=== PATIENT | female | born 1970 | race Two or more races ===

== ENCOUNTER 2022-06-07 09:45 | Inpatient (IN) | payer OTHER ==
[~2022-06-07] VITALS: Ht 149.9 cm; Wt 113.4 kg
[2022-06-07] MEDS ORDERED: ROSUVAST PO (12:18)
[2022-06-07] MEDS ORDERED: VITAMIN D PO (12:18)
== END 2022-06-12 11:20 | disposition home or self-care (01) | DRG 735 ==
LOC: O/R 06-10 07:28 → OB/GYN 06-10 07:28 → SURH 06-10 09:45 → OB/GYN 06-10 14:08
PROVIDERS: ADMIT Obstetrics & Gynecology Gynecologic Oncology; ATTEND Obstetrics & Gynecology Gynecologic Oncology
PROC: 07TC0ZZ Resection of Pelvis Lymphatic, Open Approach (ICD-10-PCS; 2022-06-10)
PROC: 0UT90ZZ Resection of Uterus, Open Approach (ICD-10-PCS; 2022-06-10)
PROC: 0UT20ZZ Resection of Bilateral Ovaries, Open Approach (ICD-10-PCS; 2022-06-10)
PROC: 0UT70ZZ Resection of Bilateral Fallopian Tubes, Open Approach (ICD-10-PCS; 2022-06-10)
PROC: 07TD0ZZ Resection of Aortic Lymphatic, Open Approach (ICD-10-PCS; principal; 2022-06-10 13:15)
DX: C54.1 Malignant neoplasm of endometrium (principal); Z20.822 Contact with and (suspected) exposure to COVID-19

== ENCOUNTER 2024-01-26 12:01 | Outpatient (CLI) | payer OTHER ==
[~2024-01-26 12:01] MED LIST: ROSUVAST PO; VITAMIN D PO
== END 2024-01-26 12:12 | disposition home or self-care (01) ==
LOC: MAMO-SONO 12:01
PROVIDERS: ATTEND Obstetrics & Gynecology Gynecologic Oncology
DX: N64.59 Other signs and symptoms in breast (principal); Z12.31 Encounter for screening mammogram for malignant neoplasm of breast

== ENCOUNTER → 2024-02-09 12:47 | Outpatient (CLI) | payer OTHER ==
[2024-02-09 13:44] LABS: CREATININE SERUM 0.63 mg/dL (0.55-1.02)
== END | disposition home or self-care (01) ==
LOC: LAB 12:47
PROVIDERS: ATTEND Radiology Diagnostic Radiology
DX: R10.30 Lower abdominal pain, unspecified (principal)

== ENCOUNTER 2024-03-02 07:13 | Outpatient (CLI) | payer OTHER | END 2024-03-02 07:27 | disposition home or self-care (01) | LOC: TOM 07:13 | PROVIDERS: ATTEND Obstetrics & Gynecology Gynecologic Oncology | DX: C54.1 Malignant neoplasm of endometrium (principal) ==

== ENCOUNTER → 2024-09-26 06:24 | Outpatient (CLI) | payer OTHER ==
[2024-09-26 07:25] LABS: URINE APPEARANCE Clear; URINE BILIRRUBIN Negative (NEGATIVE); URINE BLOOD Small; URINE COLOR Yellow; URINE GLUCOSE Negative (NEGATIVE); URINE KETONE Negative (NEGATIVE); URINE LEUKOCYTE Negative; URINE NITRATE Negative; URINE PROTEIN Negative (NEGATIVE); URINE UROBILINOGEN 0.2 E.U./dl
[2024-09-26 07:29] LABS: URINE BACTERIA 254.4 uL (0.0-1933); URINE EPITHELIAL CELLS 7.9 uL (0.0-38.8); URINE RBC 40.4 uL (0.0-20.8); URINE WBC 2.9 uL (0.0-23.2)
[2024-09-26 08:03] LABS: ALBUMIN 3.6 gm/dL (3.4-5.0); BILIRUBIN TOTAL 0.39 mg/dL (0.3-1.2); CALCIUM 9.2 mg/dL (8.5-10.1); CHOL HDL RATIO 2.6 (0-5.0); CREATININE SERUM 0.63 mg/dL (0.55-1.02); GFR 98.11; GLOBULINA 3.6 G/DL (2.4-3.5); POTASSIUM 4.23 mEq/L (3.5-5.1); TOTAL PROTEIN 7.2 gm/dL (6.4-8.2)
== END | disposition home or self-care (01) ==
LOC: LAB 06:24
PROVIDERS: ATTEND Internal Medicine Endocrinology, Diabetes & Metabolism
DX: E78.2 Mixed hyperlipidemia (principal); E11.9 Type 2 diabetes mellitus without complications

== ENCOUNTER 2025-01-21 07:54 | Outpatient (CLI) | payer OTHER | END 2025-01-21 08:07 | disposition home or self-care (01) | LOC: MRI 07:54 | PROVIDERS: ATTEND Obstetrics & Gynecology Gynecologic Oncology | DX: C54.1 Malignant neoplasm of endometrium (principal) | CPT/HCPCS: 72197 ==

== ENCOUNTER 2025-02-01 13:31 | Outpatient (CLI) | payer OTHER | END 2025-02-01 13:41 | disposition home or self-care (01) | LOC: RAD 13:31 | PROVIDERS: ATTEND Orthopaedic Surgery | DX: M54.50 Low back pain, unspecified (principal); M25.552 Pain in left hip; M25.562 Pain in left knee ==

== ENCOUNTER 2025-04-01 06:49 | Outpatient (CLI) | payer OTHER ==
[2025-04-01 07:54] LABS: URINE APPEARANCE Clear; URINE BILIRRUBIN Negative (NEGATIVE); URINE BLOOD Small; URINE COLOR Dark Yellow; URINE GLUCOSE Negative (NEGATIVE); URINE KETONE Trace (NEGATIVE); URINE LEUKOCYTE Negative; URINE NITRATE Negative; URINE PROTEIN Trace (NEGATIVE)
[2025-04-01 07:57] LABS: URINE BACTERIA 188.4 uL (0.0-1933); URINE EPITHELIAL CELLS 23.2 uL (0.0-38.8); URINE RBC 51.5 uL (0.0-20.8); URINE WBC 7.1 uL (0.0-23.2)
[2025-04-01 09:25] LABS: ALBUMIN 3.5 gm/dL (3.4-5.0); BILIRUBIN TOTAL 0.47 mg/dL (0.3-1.2); CALCIUM 8.5 mg/dL (8.5-10.1); CHOL HDL RATIO 2.4 (0-5.0); CREATININE SERUM 0.7 mg/dL (0.55-1.02); GFR 86.56; GLOBULINA 3.3 G/DL (2.4-3.5); POTASSIUM 4.73 mEq/L (3.5-5.1); TOTAL PROTEIN 6.8 gm/dL (6.4-8.2)
[2025-04-01 16:29] LABS: TSH 2.97 uIU/mL (0.358-3.74)
== END 2025-04-01 06:51 | disposition home or self-care (01) ==
LOC: LAB 06:49
PROVIDERS: ATTEND Internal Medicine Endocrinology, Diabetes & Metabolism
DX: E78.2 Mixed hyperlipidemia (principal); E03.8 Other specified hypothyroidism; E11.9 Type 2 diabetes mellitus without complications

== ENCOUNTER 2025-09-30 06:48 | Outpatient (CLI) | payer OTHER ==
[2025-09-30 08:37] LABS: ALT/SGPT 36.0 U/L (12-78); AST/SGOT 23.0 U/L (15-37); BILIRUBIN TOTAL 0.49 mg/dL (0.3-1.2); BUN CREA RATIO 25.0 (7.0-25.0); CHOL HDL RATIO 2.7 (0-5.0); CREATININE SERUM 0.68 mg/dL (0.55-1.02); GFR 89.5; GLOBULINA 3.4 G/DL (2.4-3.5); GLUCOSE FASTING 109.0 mg/dL (65-100); HDL 66.0 mg/dl (40-60); LDL 94.0 mg/dl (0-130); OSMOLALITY SERUM 289.0 MOSM/KG (275-295); TSH 3.48 uIU/mL (0.358-3.74); URINE APPEARANCE Clear; URINE BILIRRUBIN Negative (NEGATIVE); URINE COLOR Dark Yellow; URINE GLUCOSE Negative (NEGATIVE); URINE KETONE Trace (NEGATIVE); URINE LEUKOCYTE Negative; URINE NITRATE Negative; URINE PROTEIN Trace (NEGATIVE); URINE UROBILINOGEN 1.0 E.U./dl; VLDL 16.0 (0-39)
[2025-09-30 08:41] LABS: URINE BACTERIA 52.7 uL (0.0-1933); URINE EPITHELIAL CELLS 17.8 uL (0.0-38.8); URINE RBC 73.7 uL (0.0-20.8); URINE WBC 8.1 uL (0.0-23.2)
[2025-09-30 08:58] LABS: URINE BLOOD TRACES; URINE CAST 0.14 uL (0.0-1.40)
== END 2025-09-30 06:49 | disposition home or self-care (01) ==
LOC: LAB 06:48
PROVIDERS: ATTEND Internal Medicine Endocrinology, Diabetes & Metabolism
DX: E11.9 Type 2 diabetes mellitus without complications (principal); E78.2 Mixed hyperlipidemia